=== PATIENT | male | born 1945 | race Caucasian/White ===

== ENCOUNTER 2021-04-11 04:24 | Emergency (ER) | payer OTHER ==
[~2021-04-11] VITALS: Ht 175.3 cm; Wt 67.1 kg
--- NOTE | 2021-04-11 04:36 | NUR ---
PT BIBRA C/O LOW SATURATION, 85% RA. PT AAOX4 BREATHING EVENLY, BUT QUICKLY. PT ON 6L O2 VIA NC. SATURATING 98%. AUDIBLE WHEEZING NOTED. 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 AT BEDSIDE FOR EVAL. PT ATTACHED TO MONITOR AND POX. PT GIVEN BLANKET AND CALL LIGHT WITHIN REACH
--- NOTE | 2021-04-11 04:39 | NUR ---
CALLED FACILITY TO VERIFY PATIENT INFORMATION. PT'S POLST IS LIGHT ANF CANT SEE THE DIRECTIVES. FACILITY WONT BE ABLE TO SEND A DARKER COPY. VERIFIED WITH FERNANDO CARVALHO AT THE FACILITY. PT IS "ATTEMPT CPR" AND "SELECTIVE TREATMENT"
[2021-04-11] MEDS ORDERED: LEVOFLOXACIN 750 MG /D5W 150ML 150 ML IV ONE ×2 (04:41→05:00)
--- NOTE | 2021-04-11 04:46 | NUR ---
covid swab collected and sent to lab
--- NOTE | 2021-04-11 04:47 | NUR ---
rt at bedside
--- NOTE | 2021-04-11 04:48 | NUR ---
lab at bedside
[2021-04-11] MEDS ORDERED: IV NS 0.9% 1,000 ML BAG IV ONE (05:00)
[2021-04-11 05:02] LABS: ABG BASE EXCESS -1.4 mmol/L; ABG OXYGEN SATURATION 92.5 % (92.0-98.5); ABG PCO2 34.4 mmHg (35.0-45.0); ABG PO2 65.2 mmHg (75.0-100.0); AaDO2 216.5 mmHg; COHb 0.5 % (0.5-1.5); MetHb 0.1 % (0.0-1.5); O2Hb 91.9 % (94.0-97.0); SITE, ABG Right Radial; VENT MODE, BG Nasal Cannula
--- NOTE | 2021-04-11 05:15 | NUR ---
PT PLACED ON 8L O2 VIA SIMPLE MASK. O2 SATURATION 99%
[2021-04-11 05:38] LABS: BASOPHILS % (AUTO) 0.4 % (0.0-2.0); EOSINOPHILS % (AUTO) 1.4 % (0.0-6.0); HEMATOCRIT 37 % (39-51); HEMOGLOBIN 12.3 g/dL (13.5-17.5); LYMPHOCYTES # (AUTO) 1.2 K/uL (0.8-4.8); LYMPHOCYTES % (AUTO) 12.9 % (20.0-44.0); MEAN CORPUSCULAR HGB CONC 34 g/dl (31.0-36.0); MEAN CORPUSCULAR VOLUME 85 fL (80-96); MONOCYTES # (AUTO) 0.6 K/uL (0.1-1.30); MONOCYTES % (AUTO) 6.8 % (2.0-12.0); NEUTROPHILS # (AUTO) 7.2 K/uL (1.8-8.9); NEUTROPHILS % (AUTO) 78.5 % (43.0-81.0); PLATELET COUNT (AUTO) 179 K/uL (150-450); RED BLOOD CELL COUNT(AUTO) 4.28 MIL/uL (4.5-6.0); WHITE BLOOD COUNT (AUTO) 9.1 K/uL (4.3-11.0)
[2021-04-11 06:23] LABS: ALANINE AMINOTRANSFERASE 18 U/L (12-78); ALKALINE PHOSPHATASE 84 U/L (46-116); ASPARTATE AMINOTRANSFERASE 14 U/L (15-37); BILIRUBIN,DIRECT 0.2 mg/dL (0.0-0.2); BILIRUBIN,TOTAL 0.7 mg/dL (0.2-1.0); CALCIUM, SERUM 8.4 mg/dL (8.5-10.1); CARBON DIOXIDE 27 mmol/L (21-32); CHLORIDE 109 mmol/L (98-107); GLUCOSE 106 mg/dL (74-106); POTASSIUM 3.6 mmol/L (3.5-5.1); SODIUM SERUM 146 mmol/L (136-145); TOTAL PROTEIN, SERUM 6.9 g/dL (6.4-8.2); UREA NITROGEN, BLOOD 13 mg/dL (7-18)
--- NOTE | 2021-04-11 06:27 | NUR ---
pt cleaned and changed, needs met
--- NOTE | 2021-04-11 07:06 | NUR ---
PT'S DAUGHTER, MARGE UPDATED REGARDING PT.
--- NOTE | 2021-04-11 09:01 | NUR ---
CALLED [facility]
--- NOTE | 2021-04-11 10:27 | NUR ---
PT ACCEPTED TO [facility] [place] UNDER DR. LEE CALL [phone] TRANSPORT ALS PRN AT [phone]
[2021-04-11 10:30] VITALS: BP 142/81
--- NOTE | 2021-04-11 11:22 | NUR ---
REPORT GIVEN TO NURSE FISHMAN FROM [facility]
--- NOTE | 2021-04-11 11:33 | NUR ---
TRANSPORTED TO [facility] IN STABLE CONDITION
== END 2021-04-11 11:34 | disposition short-term general hospital (02) ==
LOC: ER 04:31
DX: J96.01 Acute respiratory failure with hypoxia (principal); G23.1 Progressive supranuclear ophthalmoplegia [Steele-Richardson-Olszewski]; Z20.822 Contact with and (suspected) exposure to COVID-19; R94.31 Abnormal electrocardiogram [ECG] [EKG]; R00.0 Tachycardia, unspecified; R91.8 Other nonspecific abnormal finding of lung field; Z88.1 Allergy status to other antibiotic agents; Z88.0 Allergy status to penicillin; J44.9 Chronic obstructive pulmonary disease, unspecified; I25.2 Old myocardial infarction; I10 Essential (primary) hypertension; K21.9 Gastro-esophageal reflux disease without esophagitis; Z85.038 Personal history of other malignant neoplasm of large intestine; Z66 Do not resuscitate; Z51.5 Encounter for palliative care
CPT/HCPCS: 36415; 36600 ×2; 71045; 80048; 80076; 82803; 83605; 83880; 84145; 84484; 85025; 85378; 85730; 87040 ×2; 87426; 87804; 93005; 96365; 99285; C9803; J1956; J7030